=== PATIENT | female | born 1940 | race Caucasian/White ===

== ENCOUNTER 2021-04-05 10:46 | Day surgery (SDC) | payer MEDICARE ==
[~2021-04-05] VITALS: Ht 147.3 cm; Wt 69.1 kg
[2021-04-05] VITALS (11 sets, daily range): BP systolic 130–179; BP diastolic 69–89
[2021-04-05] MEDS ORDERED: LORazepam 0.5 MG tablet PO PRN (11:20)
[2021-04-05] MEDS ORDERED: nitroGLYCERIN 0.4mg SUBLingual tab SL PRN (11:20)
[2021-04-05] MEDS ORDERED: diphenhydrAMINE 25mg capsule PO PRN (11:20)
[2021-04-05] MEDS ORDERED: normal saline 1,000 ML IV SCH (11:20)
[2021-04-05] MEDS ORDERED: CINNAMON CHROMIUM (11:34)
[2021-04-05] MEDS ORDERED: METO100T7 PO (11:34)
[2021-04-05] MEDS ORDERED: ALPH100C PO (11:34)
[2021-04-05] MEDS ORDERED: POTA99TA21 PO (11:34)
[2021-04-05] MEDS ORDERED: BILBERRY (11:34)
[2021-04-05] MEDS ORDERED: MAGN250T11 PO (11:34)
[2021-04-05] MEDS ORDERED: VITA1TAB20 PO (11:34)
[2021-04-05] MEDS ORDERED: CHOL100046 PO (11:34)
[2021-04-05] MEDS ORDERED: HYDR50TA4 PO (11:34)
[2021-04-05] MEDS ORDERED: LUTE40CA PO (11:34)
[2021-04-05] MEDS ORDERED: HYDR-3965 PO (11:34)
[2021-04-05] MEDS ORDERED: CLOP75TA15 PO (11:34)
[2021-04-05] MEDS ORDERED: UBID200C18 PO (11:34)
[2021-04-05 11:49] LABS: BASOPHILS # (AUTO) 0.1 X10'3 (0-0.2); BASOPHILS % (AUTO) 0.8 % (0-1); EOSINOPHILS # (AUTO) 0.1 X10'3 (0-0.9); HEMATOCRIT 43.7 % (35.0-45.0); HEMOGLOBIN 14.9 g/dl (12.0-16.0); LYMPHOCYTES # (AUTO) 2.5 X10'3 (1.1-4.8); LYMPHOCYTES % (AUTO) 29.4 % (21-51); MEAN CORPUSCULAR HEMOGLOBIN 31.8 PG (27.0-31.0); MEAN CORPUSCULAR HGB CONC 34.1 g/dL (33.0-36.5); MEAN CORPUSCULAR VOLUME 93.5 FL (78-98); MEAN PLATELET VOLUME 7.6 FL (7.4-10.4); MONOCYTES # (AUTO) 0.5 X10'3 (0-0.9); MONOCYTES % (AUTO) 5.5 % (2-12); NEUTROPHILS # (AUTO) 5.5 X10'3 (1.8-7.7); NEUTROPHILS % (AUTO) 63.3 % (42-75); PLATELET COUNT 239 X10'3 (140-440); RED BLOOD COUNT 4.68 X10'6 (4.20-5.60); RED CELL DISTRIBUTION WIDTH 14.3 % (11.5-14.5); WHITE BLOOD COUNT 8.6 X10'3 (4.5-11.0)
[2021-04-05 12:04] LABS: ALBUMIN 3.8 G/DL (3.4-5.0); ANION GAP 9 (8-16); BLOOD UREA NITROGEN 25 MG/DL (7-18); BUN/CREATININE RATIO 25.8 (6.6-38.0); CALCIUM 9.5 MG/DL (8.5-10.1); CHLORIDE 101 MMOL/L (99-107); CREATININE 0.97 MG/DL (0.40-0.90); GLUCOSE 133 MG/DL (70-104); POTASSIUM 3.4 MMOL/L (3.5-5.1); SODIUM 141 MMOL/L (135-145); TOTAL CARBON DIOXIDE 30.6 MMOL/L (24-32); eGFR 55 ML/MIN
[2021-04-05 12:08] LABS: PARTIAL THROMBOPLASTIN TIME 27 SECONDS (22-32)
[2021-04-05] MEDS ORDERED: LIDOcaine 1% (10mg/ml)w/preservative injection 20ml MDV ONE (12:40)
[2021-04-05] MEDS ORDERED: midazolam 1 mg/ML 2ml injection ONE (12:40)
[2021-04-05] MEDS ORDERED: iohexol 350 MG/ML 50ML vial IV ONE (12:40)
[2021-04-05] MEDS ORDERED: iohexol 350MG/ML 100ml bottle IV ONE (12:40)
[2021-04-05] MEDS ORDERED: fentaNYL/PF 50MCG/1 ML 2ML syringe ONE (12:40)
[2021-04-05] MEDS ORDERED: ondansetron/PF 4mg/2ml inj IV PRN (14:15)
[2021-04-05] MEDS ORDERED: HYDROcodone/acetaminophen 5mg/325mg tablet PO PRN (14:15)
[2021-04-05] MEDS ORDERED: HYDROcodone/acetaminophen 10/325mg tab PO PRN (14:15)
[2021-04-05] MEDS ORDERED: OXAZEpam 15mg capsule PO PRN (14:15)
== END 2021-04-05 19:50 | disposition home or self-care (01) ==
LOC: SSTAY O 10:46
PROVIDERS: ATTEND Internal Medicine Cardiovascular Disease
DX: R94.39 Abnormal result of other cardiovascular function study (principal); R07.89 Other chest pain; I25.10 Atherosclerotic heart disease of native coronary artery without angina pectoris; I34.0 Nonrheumatic mitral (valve) insufficiency; I45.10 Unspecified right bundle-branch block; J44.9 Chronic obstructive pulmonary disease, unspecified; I10 Essential (primary) hypertension; E78.5 Hyperlipidemia, unspecified; M54.30 Sciatica, unspecified side; Z95.5 Presence of coronary angioplasty implant and graft; Z88.8 Allergy status to other drugs, medicaments and biological substances; Z79.899 Other long term (current) drug therapy; Z79.01 Long term (current) use of anticoagulants; Z90.710 Acquired absence of both cervix and uterus; Z98.890 Other specified postprocedural states; Z87.891 Personal history of nicotine dependence
CPT/HCPCS: 36415; 71046; 80048; 85025; 85610; 85730; 93005; 93458; 99152; C1760; C1769; J1644; J2001; J2250; J3010; J7030; Q0163; Q9967; A4620; A6258

== ENCOUNTER 2021-06-05 07:39 | Day surgery (SDC) | payer MEDICARE ==
[2021-05-30 16:58] LABS: BASOPHILS % (AUTO) 0.4 % (0-1); EOSINOPHILS # (AUTO) 0.1 X10'3 (0-0.9); LYMPHOCYTES # (AUTO) 2.8 X10'3 (1.1-4.8); LYMPHOCYTES % (AUTO) 30.1 % (21-51); MEAN CORPUSCULAR HGB CONC 34.2 g/dL (33.0-36.5); MEAN CORPUSCULAR VOLUME 93.5 FL (78-98); MEAN PLATELET VOLUME 7.7 FL (7.4-10.4); MONOCYTES # (AUTO) 0.6 X10'3 (0-0.9); MONOCYTES % (AUTO) 6.9 % (2-12); NEUTROPHILS # (AUTO) 5.7 X10'3 (1.8-7.7); NEUTROPHILS % (AUTO) 61.6 % (42-75); PRE OP HEMATOCRIT 44.9 % (35.0-45.0); PRE OP HEMOGLOBIN 15.4 g/dL (12.0-16.0); PRE OP PLATELET COUNT 254 X10'3 (140-440); RED BLOOD COUNT 4.81 X10'6 (4.20-5.60)
[2021-05-30 17:10] LABS: ALBUMIN 3.8 G/DL (3.4-5.0); ALKALINE PHOSPHATASE 74 IU/L (46-116); BLOOD UREA NITROGEN 22 MG/DL (7-18); BUN/CREATININE RATIO 21.8 (6.6-38.0); CALCIUM 9.1 MG/DL (8.5-10.1); CHLORIDE 102 MMOL/L (99-107); CREATININE 1.01 MG/DL (0.40-0.90); PRE OP ALT 21 U/L (30-65); PRE OP ANION GAP 8 (8-16); PRE OP AST 20 U/L (10-37); PRE OP BILIRUB, TOTAL 0.5 MG/DL (0.0-1.0); PRE OP GLUCOSE 110 MG/DL (70-104); PRE OP POTASSIUM 3.6 MMOL/L (3.4-5.1); PRE OP SODIUM 141 MMOL/L (135-145); TOTAL CARBON DIOXIDE 31.5 MMOL/L (24-32); TOTAL PROTEIN 7.5 G/DL (6.4-8.2); eGFR 52 ML/MIN
[~2021-06-05] VITALS: Ht 147.3 cm; Wt 71.0 kg
[~2021-06-05 07:39] MED LIST: ALPH100C PO; BILBERRY; CHOL100046 PO; CINNAMON CHROMIUM; CLOP75TA15 PO; DOCUMENT DATE & TIME OF BETA-BLOCKER PO ONE; HYDR-3965 PO; HYDR50TA4 PO; LUTE40CA PO; MAGN250T11 PO; METO100T7 PO; POTA99TA21 PO; UBID200C18 PO; VITA1TAB20 PO; cefazolin/dext.iso 2gm/100ml IV ONE; famotidine 20mg tablet PO ONE; ringers solution, lacted 1,000 ML IV SCH
[2021-06-05 07:55] VITALS: BP 152/86
[2021-06-05] MEDS ORDERED: LIDOcaine 0.5% (5mg/ml) 50ml vial ONE ×2 (08:34→09:40)
[2021-06-05 09:05] LABS: PRE OP PROTIME 10.3 SECONDS (9.0-12.0)
[2021-06-05] MEDS ORDERED: metoprolol succinate 25mg (24-HOUR) SR. Tablet PO ONE (09:10)
[2021-06-05] MEDS ORDERED: BUPIVAcaine/PF 2.5 mg/ml (0.25%) 30ml vial ONE (09:20)
[2021-06-05] MEDS ORDERED: morphine 4 MG/ML inj SYRINge IV PRN (09:30)
[2021-06-05] MEDS ORDERED: meperidine/PF 25mg/ml syringe IV PRN (09:30)
[2021-06-05] MEDS ORDERED: acetaminophen 1,000mg/100ml IV 100 ML IV PRN (09:30)
[2021-06-05] MEDS ORDERED: proCHLORperazine 10 MG/2 ml inj IV PRN (09:30)
[2021-06-05] MEDS ORDERED: HYDROmorphone/PF 0.2 MG/ML SYRINGE IV PRN ×2 (09:30)
[2021-06-05] MEDS ORDERED: ringers solution, lacted 1,000 ML IV SCH (09:30)
[2021-06-05] MEDS ORDERED: morphine 2 MG/ML inj. syringe IV PRN (09:30)
[2021-06-05] MEDS ORDERED: ondansetron/PF 4mg/2ml inj IV PRN (09:30)
[2021-06-05] MEDS ORDERED: fentaNYL/PF 50MCG/1 ML 2ML syringe ONE (09:32)
[2021-06-05] MEDS ORDERED: midazolam 1 mg/ML 2ml injection ONE (09:39)
[2021-06-05] MEDS ORDERED: propofol inj 20 ML IV ONE (09:40)
[2021-06-05] MEDS ORDERED: BUPIVAcaine 0.5% inj/PF 30 ml vial IJ ONE (09:48)
[2021-06-05 10:00] VITALS: BP 159/90
--- NOTE | 2021-06-05 10:00 | NUR ---
ADMITTED TO PACU FROM OR ACCOMPANIED BY ANESTHESIA. INTIAL PHYSICAL ASSESSMENT DONE AND RECORDED. REPORT RECEIVED FROM ANESTHESIA.
[2021-06-05 10:10] VITALS: BP 162/91
[2021-06-05 10:20] VITALS: BP 148/95
[2021-06-05 10:30] VITALS: BP 145/96
[2021-06-05 10:40] VITALS: BP 144/96
--- NOTE | 2021-06-05 10:45 | NUR ---
DISCHARGE CRITERIA MET, DISCHARGE INSTRUCTIONS GIVEN, DEMONSTRATES VERBAL UNDERSTANDING. DISCHARGED HOME IN GOOD CONDITION.
== END 2021-06-05 10:45 | disposition home or self-care (01) ==
LOC: PAS 07:39
PROVIDERS: ATTEND Orthopaedic Surgery Hand Surgery
DX: G56.01 Carpal tunnel syndrome, right upper limb (principal); J43.9 Emphysema, unspecified; I10 Essential (primary) hypertension; M54.30 Sciatica, unspecified side; G89.29 Other chronic pain; M19.90 Unspecified osteoarthritis, unspecified site; Z87.11 Personal history of peptic ulcer disease; Z95.5 Presence of coronary angioplasty implant and graft; Z79.899 Other long term (current) drug therapy; Z79.01 Long term (current) use of anticoagulants; Z90.710 Acquired absence of both cervix and uterus; Z98.890 Other specified postprocedural states; Z87.891 Personal history of nicotine dependence
CPT/HCPCS: 36415; 64721; 80053; 82948; 85025; 85610; 85730; J2001; J2250; J2704; J3010; J3490; A4215; J7120